=== PATIENT | female | born 1935 | race Caucasian/White ===

== ENCOUNTER → 2016-06-03 | Outpatient (CLI) | payer MEDICARE ==
--- NOTE | 2016-06-03 19:51 | BD ---
EXAMINATION TYPE: MG DEXA axial skeleton. DATE OF EXAM: 06/03/2016 11:22 AM COMPARISON: NONE CLINICAL HISTORY: 81-year-old female HRT , breast cancer Height: 5'6 Weight: 242 FRAX RISK QUESTIONS: Alcohol (3 or more units per day): no Family History (Parent hip fracture): no Glucocorticoids (More than 3mos): no (Ex: prednisone, prednisolone, methylprednisolone, dexamethasone, and hydrocortisone). History of Fracture in Adulthood: no Secondary Osteoporosis: 1. Type 1 Diabetes: no 2. Hyperthyroidism: no 3. Menopause before 45: yes 4. Malnutrition: no 5. Chronic liver disease: no Rheumatoid Arthritis: no Current Tobacco Use: no RISK FACTORS HISTORY OF: Active: yes Postmenopausal woman: MEDICATIONS: Thyroid Medications: Which medication: armathyroid How Lon months, prior thyroid meds 4 months Additional Medications: breast cancer 2015 , radiation ,blood pressure see list Additional History: breast cancer 2015 EXAM MEASUREMENTS: Bone mineral densitometry was performed using the Amen. System. Bone mineral density as measured about the Lumbar spine is: ----- L1-L4(G/cm2): 1.557 T Score Values are as follows: ----- L2: 3.0 ----- L3: 3.7 ----- L4: 3.8 ----- L1-L4: 3.1 Bone mineral density about the R hip (g/cm2): 1.095 Bone mineral density about the L hip (g/cm2): 1.056 T Score values are as follows: -----R Neck: 0.4 -----L Neck: 0.1 -----R Intertrochanter: 1.7 -----L Intertrochanter: 1.9 IMPRESSION: Normal (Values between +1 and -1 indicate normal bone mass) as measured in the lumbar spine and both hips. Rescreen in 5 years. NOTE: T-SCORE=SD OF THE YOUNG ADULT MEAN.
== END | disposition home or self-care (01) ==
LOC: RADBDWWP 10:58
PROVIDERS: ATTEND Internal Medicine Hematology & Oncology
DX: N95.1 Menopausal and female climacteric states (principal); C50.919 Malignant neoplasm of unspecified site of unspecified female breast; Z79.890 Hormone replacement therapy
CPT/HCPCS: 77080

== ENCOUNTER 2016-07-17 16:25 | Emergency (ER) | payer MEDICARE ==
[2016-07-17 16:36] VITALS: RESP 18
[2016-07-17] MEDS ORDERED: ONDANSETRON 4 MG/2 ML VIAL IVP STA (17:41)
[2016-07-17] MEDS ORDERED: PANTOPRAZOLE 40 MG/10 ML VIAL IVP STA (17:41)
[2016-07-17] MEDS ORDERED: HYDROmorphone 1 MG/ML 1 ML SYRINGE IVP STA (17:41)
[2016-07-17] MEDS ORDERED: SODIUM CHLORIDE 0.9% 1,000 ML IV STA (17:41)
[2016-07-17 18:16] LABS: Basophils % (A) 1 %; CH 32.9; CHCM 34.1; Eosinophils # (A) 0.3 k/uL (0-0.7); Eosinophils % (A) 4 %; HCT 44.2 % (34.0-46.0); HDW 2.75; HGB 14.7 gm/dL (11.4-16.0); Luc # (Auto) 0.17; Luc % (Auto) 2; Lymphocytes % (A) 39 %; MCH 32.2 pg (25.0-35.0); MCHC 33.3 g/dL (31.0-37.0); MCV 96.8 fL (80.0-100.0); Mean Platelet Volume 6.8; Monocytes # (A) 0.3 k/uL (0-1.0); Monocytes % (A) 4 %; Neutrophils # (A) 3.7 k/uL (1.3-7.7); Neutrophils % (A) 49 %; RBC 4.56 m/uL (3.80-5.40); WBC 7.6 k/uL (3.8-10.6); WBC (Perox) 7.76
[2016-07-17 18:28] LABS: Calcium 10.9 mg/dL (8.4-10.2); Potassium 5.2 mmol/L (3.5-5.1); Total Bilirubin 0.6 mg/dL (0.2-1.3); Total Protein 7.4 g/dL (6.3-8.2)
[2016-07-17 18:32] LABS: Amorphous Sediment,Urine Rare /hpf; Appearance,Urine Clear (Clear); Bilirubin,Urine Negative (Negative); Glucose,Urine (UA) 2+ (Negative); Ketones,Urine Negative (Negative); Leukocyte Esterase,Urine Small (Negative); Mucus,Urine Rare /hpf; Nitrite,Urine Negative (Negative); Particle Count 1149; Protein,Urine Negative (Negative); RBC,Urine 1 /hpf (0-5); Squamous Epithelial Cell,Urine 1 /hpf (0-4); UA Billing (MACRO vs. MICRO) MICRO; Urobilinogen,Urine <2.0 mg/dL (<2.0); WBC,Urine 12 /hpf (0-5)
--- NOTE | 2016-07-17 18:49 | XR ---
EXAMINATION TYPE: XR KUB DATE OF EXAM: 07/17/2016 6:41 PM COMPARISON: NONE HISTORY: Pain TECHNIQUE: 2 upright views were obtained FINDINGS: Surgical clips are noted over the right breast shadow and also over the right upper quadran t in the expected position of the gallbladder fossa. The bowel gas pattern is normal. There are no abnormal gas collections. There is no evidence abdominal pelvic mass or mass effect. Skeletal structures are unremarkable. The visualized lung bases and pleural spaces are negative. IMPRESSION: NO ACUTE PROCESS.
--- NOTE | 2016-07-17 19:15 | ED ---
General Adult HPI - General Chief complaint: Abdominal Pain Stated complaint: Side/Back Pain Source: patient Mode of arrival: ambulatory Limitations: no limitations - Related Data Home Medications Medication Instructions Recorded Confirmed Hydrochlorothiazide [Hydrodiuril] 25 mg PO DAILY 01/30/16 07/17/16 Acetaminophen [Tylenol Arthritis] 650 mg PO TID PRN 07/17/16 07/17/16 Thyroid, Pork [[place] Thyroid] 30 mg PO DAILY 07/17/16 07/17/16 Previous Rx's Medication Instructions Recorded Acetaminophen-Codeine 300-30mg 1 tab PO Q4H PRN #14 tablet 07/17/16 [Tylenol #3] Diazepam [Valium] 5 mg PO BID #6 tab 07/17/16 Allergies Allergy/AdvReac Type Severity Reaction Status Date / Time latex Allergy Rash/Hives Verified 07/17/16 17:20 Sulfa (Sulfonamide Allergy Rash/Hives Verified 07/17/16 17:20 Antibiotics) tape Allergy Rash/Hives-states Uncoded 07/17/16 16:36 "paper tape ok" Review of Systems ROS Statement: Those systems with pertinent positive or pertinent negative responses have been documented in the HPI. ROS Other: All systems not noted in ROS Statement are negative. Past Medical History Past Medical History: Cancer, Hypertension, Thyroid Disorder Additional Past Medical History / Comment(s): rt breast CA-Dx 12-27-15"mildly enlarged heart",hypothyroidism, urinary incontinence. History of Any Multi-Drug Resistant Organisms: None Reported Past Surgical History: Cholecystectomy, Hysterectomy, Joint Replacement, Tubal Ligation Additional Past Surgical History / Comment(s): skin lesion removed from chest, primitivo knee replacement,primitivo cataracts,4 dental implants, R Lumpectomy. Past Anesthesia/Blood Transfusion Reactions: No Reported Reaction Past Psychological History: No Psychological Hx Reported Smoking Status: Never smoker Past Alcohol Use History: None Reported Past Drug Use History: None Reported - Past Family History Father Family Medical History: Myocardial Infarction ([place]) Additional Family Medical History / Comment(s): lung problems Mother Family Medical History: Dementia Sister(s) Family Medical History: Hypertension Additional Family Medical History / Comment(s): heart problems Brother(s) Family Medical History: Myocardial Infarction ([place]) Additional Family Medical History / Comment(s): age 65 Son(s) Family Medical History: Deep Vein Thrombosis (DVT) General Exam Limitations: no limitations Course Vital Signs 07/17/16 07/17/16 16:32 18:45 Temperature 98.1 F 98.8 F Pulse Rate 105 H 69 Respiratory 18 18 Rate Blood Pressure 145/91 162/69 O2 Sat by Pulse 95 97 Oximetry Medical Decision Making - Medical Decision Making Medical decision making patient's white count 7.6 hemoglobin 14 hematocrit 44, potassium is 5.2 BUN 29 creatinine 1.13 with a GFR 46. Glucose 229. AST mildly elevated at 42. BMP normal 107 ,Amylase and lipase within normal limits. KUB was done reviewed by radiologist his findings are the surgical clips are noted over the right breast shadow and also over the right upper quadrant and the expected position of the gallbladder fossa. The bowel gas pattern is normal. There is no abnormal gas collections. There is no evidence of abdominal pelvic mass or mass effect. Skeletal structures are unremarkable. The visualized lung bases and pleural spaces are negative. Depression no acute process. As read by Dr. Master Dixon CT of the abdomen and pelvis done without IV contrast. The radiologist final impression is no acute process, CT abdomen and pelvis without contrast. As read by Dr. Master Dixon The patient be placed on Tylenol threes be taken with food. And Valium 5 mg twice a day for the next 3 days. Told to change positions slowly. Use ice alternating with local heat to the area of discomfort. Gentle stretching. If the bump persists reevaluation is necessary. I also discussed the patient her chronic kidney changes with a GFR in the 40s and elevated creatinine. An elevated sugar of 223. The patient's to call tomorrow for an appointment to follow-up for evaluation of type 2 diabetes. - Lab Data Result diagrams: 07/17/16 17:55 07/17/16 17:55 Lab Results 07/17/16 07/17/16 07/17/16 Range/Units 17:55 17:55 17:55 WBC 7.6 (3.8-10.6) k/uL RBC 4.56 (3.80-5.40) m/uL Hgb 14.7 (11.4-16.0) gm/dL Hct 44.2 (34.0-46.0) % MCV 96.8 (80.0-100.0) fL MCH 32.2 (25.0-35.0) pg MCHC 33.3 (31.0-37.0) g/dL RDW 13.0 (11.5-15.5) % Plt Count 204 (150-450) k/uL Neutrophils % 49 % Lymphocytes % 39 % Monocytes % 4 % Eosinophils % 4 % Basophils % 1 % Neutrophils # 3.7 (1.3-7.7) k/uL Lymphocytes # 3.0 (1.0-4.8) k/uL Monocytes # 0.3 (0-1.0) k/uL Eosinophils # 0.3 (0-0.7) k/uL Basophils # 0.0 (0-0.2) k/uL Sodium 140 (137-145) mmol/L Potassium 5.2 H (3.5-5.1) mmol/L Chloride 101 (98-107) mmol/L Carbon Dioxide 26 (22-30) mmol/L Anion Gap 13 mmol/L BUN 29 H (7-17) mg/dL Creatinine 1.13 H (0.52-1.04) mg/dL Est GFR (MDRD) Af Amer 56 (>60 ml/min/1.73 sqM) Est GFR (MDRD) Non-Af 46 (>60 ml/min/1.73 sqM) Glucose 229 H (74-99) mg/dL Calcium 10.9 H (8.4-10.2) mg/dL Total Bilirubin 0.6 (0.2-1.3) mg/dL AST 42 H (14-36) U/L ALT 42 (9-52) U/L Alkaline Phosphatase 90 (38-126) U/L NT-Pro-B Natriuret Pep 107 pg/mL Total Protein 7.4 (6.3-8.2) g/dL Albumin 4.5 (3.5-5.0) g/dL Amylase 65 (30-110) U/L Lipase 171 (23-300) U/L Urine Color Urine Appearance (Clear) Urine pH (5.0-8.0) Ur Specific [place] (1.001-1.035) Urine Protein (Negative) Urine Glucose (UA) (Negative) Urine Ketones (Negative) Urine Blood (Negative) Urine Nitrite (Negative) Urine Bilirubin (Negative) Urine Urobilinogen (<2.0) mg/dL Ur Leukocyte Esterase (Negative) Urine RBC (0-5) /hpf Urine WBC (0-5) /hpf Ur Squamous Epith Cells (0-4) /hpf Amorphous Sediment (None) /hpf Hyaline Casts (0-2) /lpf Urine Mucus (None) /hpf 07/17/16 Range/Units 17:55 WBC (3.8-10.6) k/uL RBC (3.80-5.40) m/uL Hgb (11.4-16.0) gm/dL Hct (34.0-46.0) % MCV (80.0-100.0) fL MCH (25.0-35.0) pg MCHC (31.0-37.0) g/dL RDW (11.5-15.5) % Plt Count (150-450) k/uL Neutrophils % % Lymphocytes % % Monocytes % % Eosinophils % % Basophils % % Neutrophils # (1.3-7.7) k/uL Lymphocytes # (1.0-4.8) k/uL Monocytes # (0-1.0) k/uL Eosinophils # (0-0.7) k/uL Basophils # (0-0.2) k/uL Sodium (137-145) mmol/L Potassium (3.5-5.1) mmol/L Chloride (98-107) mmol/L Carbon Dioxide (22-30) mmol/L Anion Gap mmol/L BUN (7-17) mg/dL Creatinine (0.52-1.04) mg/dL Est GFR (MDRD) Af Amer (>60 ml/min/1.73 sqM) Est GFR (MDRD) Non-Af (>60 ml/min/1.73 sqM) Glucose (74-99) mg/dL Calcium (8.4-10.2) mg/dL Total Bilirubin (0.2-1.3) mg/dL AST (14-36) U/L ALT (9-52) U/L Alkaline Phosphatase (38-126) U/L NT-Pro-B Natriuret Pep pg/mL Total Protein (6.3-8.2) g/dL Albumin (3.5-5.0) g/dL Amylase (30-110) U/L Lipase (23-300) U/L Urine Color Yellow Urine Appearance Clear (Clear) Urine pH 5.0 (5.0-8.0) Ur Specific [place] 1.020 (1.001-1.035) Urine Protein Negative (Negative) Urine Glucose (UA) 2+ H (Negative) Urine Ketones Negative (Negative) Urine Blood Negative (Negative) Urine Nitrite Negative (Negative) Urine Bilirubin Negative (Negative) Urine Urobilinogen <2.0 (<2.0) mg/dL Ur Leukocyte Esterase Small H (Negative) Urine RBC 1 (0-5) /hpf Urine WBC 12 H (0-5) /hpf Ur Squamous Epith Cells 1 (0-4) /hpf Amorphous Sediment Rare H (None) /hpf Hyaline Casts 1 (0-2) /lpf Urine Mucus Rare H (None) /hpf Disposition Clinical Impression: Spasm of back muscles, Chronic kidney disease Disposition: HOME SELF-CARE Condition: Stable Instructions: Acute Low Back Pain (ED), Type 2 Diabetes in Adults (ED) Additional Instructions: Call and talk to her doctor tomorrow about newly discovered kidney problems and elevated blood sugar. Take medications as directed for the pain in her back. Prescriptions: Acetaminophen-Codeine 300-30mg [Tylenol #3] 1 tab PO Q4H PRN #14 tablet PRN Reason: Pain Diazepam [Valium] 5 mg PO BID #6 tab Time of Disposition: 21:14
--- NOTE | 2016-07-17 19:30 | CT ---
EXAMINATION TYPE: CT abdomen pelvis wo con DATE OF EXAM: 07/17/2016 7:16 PM COMPARISON: May 19, 2013 HISTORY: Left sided pain CT DLP: 1093 mGycm Automated exposure control for dose reduction was used. TECHNIQUE: Helical acquisition of images was performed from the lung bases through the pelvis. FINDINGS: LUNG BASES: No significant abnormality is appreciated. LIVER/GB: No significant abnormality is appreciated. PANCREAS: No significant abnormality is seen. SPLEEN: No significant abnormality is seen. ADRENALS: No significant abnormality is seen. KIDNEYS: No significant abnormality is seen. ADENOPATHY: None visualized REPRODUCTIVE ORGANS: No significant abnormality is seen URINARY BLADDER: No significant abnormality is seen. PELVIC ADENOPATHY: None visualized. OSSEOUS STRUCTURES: No significant abnormality is seen. BOWEL: No significant abnormality is seen. IMPRESSION: NO ACUTE PROCESS, CT ABDOMEN AND PELVIS WITHOUT CONTRAST.
[2016-07-17 21:16] VITALS: BP 200/85; PULSE 73; TEMP 98.4
== END 2016-07-17 21:39 | disposition home or self-care (01) ==
LOC: EC 16:25
DX: M62.830 Muscle spasm of back (principal); I12.9 Hypertensive chronic kidney disease with stage 1 through stage 4 chronic kidney disease, or unspecified chronic kidney disease; N18.9 Chronic kidney disease, unspecified; E03.9 Hypothyroidism, unspecified; Z79.899 Other long term (current) drug therapy; Z88.2 Allergy status to sulfonamides; Z88.8 Allergy status to other drugs, medicaments and biological substances; Z91.040 Latex allergy status; Z85.3 Personal history of malignant neoplasm of breast
CPT/HCPCS: 36415; 83880; 80053; 82150; 83690; 85025; 81001; 87086; 74000; 74176; 99284; 96374; 96375; 96361; J2405; J1170; C9113

== ENCOUNTER → 2016-08-17 | Outpatient (CLI) | payer MEDICARE ==
[2016-08-17 10:25] LABS: Calcium 10.8 mg/dL (8.4-10.2); Magnesium 1.4 mg/dL (1.6-2.3); Phosphorous 3.6 mg/dL (2.5-4.5); Potassium 4.9 mmol/L (3.5-5.1)
--- NOTE | 2016-08-17 21:35 | MR ---
MRI brain with and without contrast HISTORY: Memory loss Multiplanar multisequence and postcontrast images through the brain following 20 cc of enhance IV No comparisons FINDINGS: Periventricular white matter shows increased signal on inversion recovery and T2-weighted s equences, there are scattered and confluent areas of hyperintensity. Approximately 50 lesions are pre sent. There is cortical atrophy present. No restricted diffusion to suggest subacute ischemia. There is no abnormal enhancement following contrast administration. Cerebellopontine angles, corpus callosu m, pituitary, cervical medullary junction are normal. The orbits show a symmetric appearance. Some in flammatory change present within the maxillary sinus on the right, mild inflammatory change right mas toid air cells. No hemorrhage or hydrocephalus. IMPRESSION: Probable chronic small vessel ischemic changes, age related atrophy.
== END | disposition home or self-care (01) ==
LOC: RADMRIMAIN 09:39
PROVIDERS: ATTEND Family Medicine
DX: G31.84 Mild cognitive impairment of uncertain or unknown etiology (principal)
CPT/HCPCS: 80048; 83735; 84100; 82306; 83970; 70553; A9577

== ENCOUNTER → 2016-09-14 | Outpatient (CLI) | payer MEDICARE ==
[2016-09-14 11:44] LABS: Basophils # (A) 0.1 k/uL (0-0.2); Basophils % (A) 1 %; CHCM 33.2; Eosinophils # (A) 0.2 k/uL (0-0.7); Eosinophils % (A) 4 %; HCT 45.9 % (34.0-46.0); HDW 2.57; HGB 15.1 gm/dL (11.4-16.0); Luc # (Auto) 0.15; Luc % (Auto) 3; Lymphocytes % (A) 48 %; MCH 31.8 pg (25.0-35.0); MCHC 32.8 g/dL (31.0-37.0); MCV 96.9 fL (80.0-100.0); Monocytes # (A) 0.4 k/uL (0-1.0); Monocytes % (A) 6 %; Neutrophils # (A) 2.4 k/uL (1.3-7.7); Neutrophils % (A) 39 %; RBC 4.74 m/uL (3.80-5.40); RDW 12.8 % (11.5-15.5); WBC 6.2 k/uL (3.8-10.6)
[2016-09-14 11:55] LABS: Calcium 11.2 mg/dL (8.4-10.2)
--- NOTE | 2016-09-14 11:58 | XR ---
EXAMINATION TYPE: XR chest 2V DATE OF EXAM: 09/14/2016 11:50 AM COMPARISON: 09/06/15 HISTORY: Shortness of breath TECHNIQUE: Frontal and lateral views of the chest are obtained. FINDINGS: Scattered senescent parenchymal changes noted. Hyperinflation compatible with COPD. No evidence for infiltrate. No evidence for atelectasis. Heart size is stable. Mediastinal structures are stable and grossly unremarkable. No evidence for hilar prominence. Degenerative changes dorsal spine. IMPRESSION: 1. No evidence for acute pulmonary disease.
== END | disposition home or self-care (01) ==
LOC: LABWHC1 11:14
PROVIDERS: ATTEND Family Medicine
DX: R05 Cough (principal); R06.02 Shortness of breath; R53.83 Other fatigue; R42 Dizziness and giddiness
CPT/HCPCS: 36415; 71020; 80048; 83880; 85025

== ENCOUNTER → 2016-11-13 | Outpatient (CLI) | payer MEDICARE ==
--- NOTE | 2016-11-13 14:07 | MM ---
Reason for exam: additional evaluation requested from prior study. Last mammogram was performed 1 year and 1 month ago. History: Patient is postmenopausal, has history of breast cancer at age 80, and has history of other cancer at age 60. Family history of breast cancer in maternal grandmother. Lumpectomy of the right breast, February 29, 2016. Malignant MG pre op needle loc RT of the right breast, February 02, 2016. Malignant MG stereo VAD BX RT of the right breast, December 27, 2015. Took estrogen for 36 years beginning at age 42. Taking progesterone for 36 years beginning at age 42. Physical Findings: Nurse did not find any significant physical abnormalities on exam. MG 3D Diag Mammo W/Cad JEFFRY Bilateral CC and MLO view(s) were taken. Prior study comparison: October 27, 2015, right breast MG 3d work up w/cad RT. October 24, 2015, bilateral MG 3d screening mammo w/cad. April 23, 2013, bilateral digital screening mammo w/CAD. The breast tissue is heterogeneously dense. This may lower the sensitivity of mammography. Post surgical and post therapy changes in the right breast. Underlying post lumpectomy scar and subtle nodularity can be reassessed in 6 months. Stable regional calcifications lateral left breast. These results were verbally communicated with the patient and result sheet given to the patient on 11/13/16. ASSESSMENT: Probably benign, BI-RAD 3 RECOMMENDATION: Follow-up diagnostic mammogram of the right breast in 6 months.
== END | disposition home or self-care (01) ==
LOC: RADMAMWWP 10:56
PROVIDERS: ATTEND Radiology Radiation Oncology
DX: R92.8 Other abnormal and inconclusive findings on diagnostic imaging of breast (principal); Z85.3 Personal history of malignant neoplasm of breast
CPT/HCPCS: G0204; G0279

== ENCOUNTER → 2016-12-27 | Outpatient (CLI) | payer MEDICARE ==
--- NOTE | 2016-12-27 12:54 | XR ---
EXAMINATION TYPE: XR thoracic spine 2V DATE OF EXAM: 12/27/2016 CLINICAL HISTORY: pain TECHNIQUE: Frontal, lateral, and swimmer's view of thoracic spine are obtained. COMPARISON: None. FINDINGS: Thoracic spine show satisfactory alignment without evidence of acute fracture or dislocatio n. Vertebral body heights are preserved. Moderate degenerative disc space narrowing and moderately s evere ventral spondylosis. Visualized ribs are unremarkable. IMPRESSION: No acute fracture or dislocation is seen in the thoracic spine. ICD 10 NO FRACTURE, INIT IAL EVALUATION
--- NOTE | 2016-12-27 14:00 | XR ---
EXAMINATION TYPE: XR shoulder limited LT DATE OF EXAM: 12/27/2016 CLINICAL HISTORY: Left shoulder pain with no known injury TECHNIQUE: Three views of the left shoulder are obtained. COMPARISON: None. FINDINGS: There is no acute fracture/dislocation evident in the left shoulder. There is moderate acr omioclavicular arthropathy demonstrated as marginal osteophytes and slight joint space narrowing. Moderate to severe left glenohumeral arthropathy is seen as osteophytes, joint space narrowing and gl enoid sclerosis. Three 8mm ossific bodies are seen within the axillary recess/pouch, the most cephala d may be intra-articular. Additional well-circumscribed 11 mm ossified body is located in the infraco racoid bursa/recess. The visualized ribs are intact and unremarkable. IMPRESSION: 1. There is no acute fracture or dislocation in the left shoulder. 2. At least moderate acromioclavicular and glenohumeral arthropathy with numerous ossific bodies. One of these may be intra-articular.
== END | disposition home or self-care (01) ==
LOC: RADXRMAIN 12:18
PROVIDERS: ATTEND Family Medicine
DX: M54.6 Pain in thoracic spine (principal); M12.812 Other specific arthropathies, not elsewhere classified, left shoulder; M25.512 Pain in left shoulder
CPT/HCPCS: 72070